=== PATIENT | female | born 1950 ===

== ENCOUNTER 2024-09-17 11:21 | Emergency (ER) | payer OTHER ==
[~2024-09-17] VITALS: Ht 165.1 cm; Wt 87.5 kg
[~2024-09-17 11:21] MED LIST: CHOLESTERAL MED; FOLIC ACID PO; LOSA25 PO; MECL12.5 PO; METF500 PO; ROSU10TA PO; XANAX
[2024-09-17 11:43] VITALS: BP 121/77
[2024-09-17] MEDS ORDERED: ELIQUIS5 M2 PO (13:40)
== END 2024-09-17 13:51 | disposition home or self-care (01) ==
LOC: ER 11:21
DX: I82.812 Embolism and thrombosis of superficial veins of left lower extremity (principal); Z79.84 Long term (current) use of oral hypoglycemic drugs; Z79.899 Other long term (current) drug therapy; Z88.0 Allergy status to penicillin
CPT/HCPCS: 93971; 99283-25